=== PATIENT | female | born 1985 | race Caucasian/White ===

== ENCOUNTER 2016-06-16 04:07 | Emergency (ER) | payer MEDICARE, OTHER ==
[~2016-06-16 04:07] MED LIST: ANTIVERT 25MG T25 MG PO; ASPIR-LOW81 MG PO; DICYCLOMINE HCL10 MG PO; IPRAT-ALBUT 0.5-3 ML INH; LIPITOR TAB 2020 MG PO; LORATADINE10 MG PO; LORTAB 7.5-3251 EACH PO; NEURONTIN 400400 MG PO; OMEPRAZOLE40 MG PO; OMNICEF 300 MG300 MG PO; PREDNISONE10 MG PO; ROBAXIN500 MG PO; ROBITUSSIN DM U10 ML PO; SERTRALINE HCL25 MG PO; SINGULAIR10 MG PO; TRAZODONE HCL100 MG PO; VISION PLUS LU1 EACH PO; VITAMIN B-121000 MC3 PO
[2016-06-16 05:55] LABS: HEMOGLOBIN 12.6 gm/dl (12.3-15.3); RED BLOOD COUNT 4.09 M/UL (4.00-5.10); WHITE BLOOD COUNT 9.5 K/UL (4.5-11.0)
[2016-06-16 06:12] LABS: BUN/CREATININE RATIO 25 (0-10)
== END 2016-06-16 08:30 | disposition home or self-care (01) ==
LOC: ER1 04:07
PROVIDERS: Physician Assistant
DX: J06.9 Acute upper respiratory infection, unspecified (principal); R07.81 Pleurodynia; F17.210 Nicotine dependence, cigarettes, uncomplicated; Z88.5 Allergy status to narcotic agent; R50.9 Fever, unspecified
CPT/HCPCS: 36415; 71020; 80053; 81001; 83605; 84484; 84703; 85025; 87040; 87086; 93005; 96360; 99284; J2405; J2930